=== PATIENT | male | born 1960 | race Hispanic/Latino ===

== ENCOUNTER 2016-11-05 09:30 | Emergency (ER) | payer OTHER ==
[~2016-11-05] VITALS: Ht 172.7 cm; Wt 82.3 kg
[2016-11-05 09:38] VITALS: BP 118/62; PULSE 64; RESP 11; O2SAT 92
--- NOTE | 2016-11-05 09:41 | ED.REPORT ---
HPI-Chest Pain 40 and Over Date of Service Nov 05, 2016 ED Provider: Dakota Boo MD 56 year old male presents to the ER via EMS complaining of right chest pressure sudden onset just prior to arrival while getting an MRI. Patient admits to anxiety while in the MRI machine. He also reports radiation of pain into the left arm. Pain is exacerbated with deep breaths. Patient denies nausea, vomiting , pain/swelling of the lower extremities, any recent immobilization or travel and history of [place]. NTG and ASA administered en route with no relief of symptoms. Patient admits to similar episode in the past, at which time he had a cardiac workup at [facility] which was normal. Nursing Notes Stated Complaint: CHEST PAIN Chief Complaint: Chest Pain Nursing Notes Reviewed: Yes Allergies: Coded Allergies: No Known Allergies (Unverified , 11/05/16) Scheduled PRN Ibuprofen (Ibuprofen) 600 Mg Tablet 600 MG PO QID PRN PRN For Pain General Time Seen by MD: 09:40 Chief Complaint Chest pressure Hx Obtained From: Patient Arrived By: Ambulance Sudden in Onset?: Yes Onset Occurred: Just prior to arrival Symptom Duration: Since onset Location: : Substernal Quality: Pressure Radiation: : Arm left Severity: Current: Mild Severity: Maximum: Pain level 5 out of 10 Associated with: Denies: Nausea, Vomiting Pertinent Negative: Pt denies other symptoms Recent Healthcare: Recent doctor visit Similar Sx Previous: Yes Risk Factors PERC Rule PERC Result: All PERC criteria "No" Past Medical History Past Medical History Headaches Anxiety Smoking History Former Smoker Social History Alcohol Use: "Social" (Occasional) Other Social History: Review of Systems Constitutional: Denies: Chills, Fever Respiratory: Denies: Non-productive cough, Shortness of breath Cardiovascular: Reports: Chest pain GI: Denies: Abdominal pain, Nausea, Vomiting Musculoskeletal: Reports: Extremity pain (Left arm) Skin: Denies Diaphoresis Complete sys rev & neg: except as marked. Physical Exam Initial Vital Signs Vital Signs (First) Date Time Temp Pulse Resp B/P Pulse Ox O2 Delivery O2 Flow Rate FiO2 11/05/16 09:38 36.5 64 11 118/62 92 Room Air Initial VS: Reviewed Head / Eyes: Atraumatic, Normocephalic Neck: Supple, Non-tender, Full range of motion Extremities: Vascular intact, Neuro intact, No swelling, No tenderness Skin: Warm, Dry, No cyanosis Neurologic: Alert, Oriented, Nonfocal General/Constitutional: Awake, Alert, Well developed, Well nourished Respiratory / Chest: Breath sounds NL, Breath sounds = bilat, No respiratory distress, No rales, No rhonchi, No wheezing Reproducible right chest pain. Cardiovascular: Heart rate NL, Regular rhythm, Heart sounds NL, No murmurs, Peripheral circulation NL, Pulses = bilaterally, No gross BP differential Abdomen: Soft, Non-tender, No guarding, No rebound, No distention Interpretation & Diagnostics Lab Results Interpretation Result Diagram: 11/05/16 1004 11/05/16 1004 Test 11/05/16 10:04 White Blood Count 16.1th/mm3 (3.8-10.1) Red Blood Count 5.84mil/mm3 (4.40-5.80) Hemoglobin 17.8g/dL (13.8-17.2) Hematocrit 49.2% (41.0-50.0) Mean Corpuscular Volume 84.2fL (81-100) Mean Corpuscular Hemoglobin 30.5pg (27.0-35.0) Mean Corpuscular Hemoglobin Concent 36.2% (32.0-37.0) Red Cell Distribution Width 13.9% (12.3-15.4) Platelet Count 530bil/L (150-400) Neutrophils (%) (Auto) 54.2% (40-74) Lymphocytes (%) (Auto) 27.5% (14-46) Monocytes (%) (Auto) 10.4% (4-12) Eosinophils (%) (Auto) 6.9% (0-5) Basophils (%) (Auto) 0.6% (0-3) Sodium Level 141mEq/L (134-144) Potassium Level 4.3mEq/L (3.5-5.2) Chloride Level 102mEq/L (97-108) Carbon Dioxide Level 24mmol/L (18-29) Blood Urea Nitrogen 10mg/dL (6-24) Creatinine 0.62mg/dL (0.76-1.27) Estimat Glomerular Filtration Rate 142mL/min (>59) Glucose Level 97mg/dL (60-99) Calcium Level 9.1mg/dL (8.5-10.1) Magnesium Level 2.1mg/dL (1.6-2.6) Total Bilirubin 1.0mg/dL (0.0-1.2) Aspartate Amino Transf (AST/SGOT) 32U/L (0-50) Alanine Aminotransferase (ALT/SGPT) 36U/L (0-44) Alkaline Phosphatase 79U/L (25-150) Troponin T 0.010ug/L (0.0-0.011) Total Protein 7.6g/dL (6.4-8.4) Albumin 4.5g/dL (3.4-5.0) ECG Interpretation ECG Interpretation: Sinus rhythm, rate [address] T changes LVH Time: 10:34 Interpreted by: ED physician X-Ray Chest Interpretation Chest Xray Interpretation: IMPRESSION: 1. No acute cardiopulmonary disease. Dictated by: Lupillo Mina M.D. on 11/05/2016 at 9:52 Approved by: Lupillo Mina M.D. on 11/05/2016 at 9:53 View: Portable, 1 view Interpretation / Wet Read by: Interpret - Radiologist Re-Eval/Medical Decision Med Decision/Clinical Course 56-year-old male history of anxiety presenting complaining of chest pain that started while he was in the MRI trailer. He felt anxious. It was reproducible on exam right chest. Resolved with Toradol. Troponins negative. No EKG changes. Perc negative. Likely musculoskeletal given reproducible. Cannot rule out anxiety. Recommend follow-up with primary doctor. Return precautions given. Source of Hx: Old records Time of Eval: 12:07 Re-Evaluation/Progress Note: Patient is now accompanied by his and daughter. Pain is resolved. Discussed lab and radiology results and plan to discharge. Patient is amenable to the plan. Return precautions given. All other questions addressed. Counseled Regarding: Diagnosis, Lab results, Need for follow-up, When/why to return to ED Discharge & Departure Primary Impression: Non-cardiac chest pain Disposition: Home Discharge Condition All VS Reviewed: Yes Condition: Stable Patient Instructions: Chest Pain (ED) Additional Instructions: Your workup today was reassuring. I do not believe that there is any immediately dangerous or life-threatening cause for your symptoms at this time. Your labs and chest x-ray were normal. Go home and rest. Take ibuprofen as directed for pain. Call your primary care physician to arrange a follow-up appointment for tomorrow. Return to the ER if you have any new or worsening chest pain, shortness of breath, nausea, or any other concerning symptoms. Scribe Attestation Portions of this note were transcribed by Ralf Carty. I, Dr. Boo, personally performed the history, physical exam and medical decision-making; I reviewed and confirmed the accuracy of the information in the transcribed note. Signed by: Mumtaz Cook, 11/05/2016 and 12:10 Dakota Boo MD Nov 05, 2016 09:41 RALF CARTY Nov 05, 2016 10:23
[2016-11-05 10:08] LABS: BASOPHILS % (AUTO) 0.6 % (0-3); EOSINOPHILS % (AUTO) 6.9 % (0-5); MONOCYTES % (AUTO) 10.4 % (4-12); Mean Corpuscular Hemoglobin 30.5 pg (27.0-35.0); Mean Corpuscular Volume 84.2 fL (81-100); NEUTROPHILS % (AUTO) 54.2 % (40-74); Platelet Count 530 bil/L (150-400)
[2016-11-05 10:40] LABS: TROPONIN T 0.01 ug/L (0.0-0.011)
[2016-11-05 10:51] LABS: Magnesium 2.1 mg/dL (1.6-2.6)
--- NOTE | 2016-11-05 10:56 | DRSVH ---
PROCEDURE: X-RAY CHEST ONE VIEW, PORTABLE ([id number]) INDICATIONS: CP TECHNIQUE: One view of the chest was acquired. COMPARISON: None. FINDINGS: Surgical changes and devices: None. Lungs and pleura: No pleural effusions or pneumothorax. Lungs are clear. Mediastinum: Mediastinal contours appear normal. Heart size is normal. Bones and chest wall: No suspicious bony lesions. Overlying soft tissues appear unremarkable. IMPRESSION: 1. No acute cardiopulmonary disease. Dictated by: Lupillo Mina M.D. on 11/05/2016 at 9:52 Approved by: Lupillo Mina M.D. on 11/05/2016 at 9:53
[2016-11-05 12:04] VITALS: BP 114/63; PULSE 55; RESP 14; O2SAT 96
[2016-11-05] MEDS ORDERED: IBUP-1827 PO (12:11)
[2016-11-05 12:20] VITALS: BP 114/63; PULSE 55; RESP 14; O2SAT 96
== END 2016-11-05 12:11 | disposition home or self-care (01) ==
LOC: SED 09:30 → EDBD 09:30 → SED 12:11
DX: R07.89 Other chest pain (principal); Z87.891 Personal history of nicotine dependence